=== PATIENT | female | born 1975 | race Caucasian/White ===

== ENCOUNTER 2016-05-20 15:03 | Emergency (ER) | payer OTHER ==
[~2016-05-20 15:03] MED LIST: BACLOFEN10 M1 PO; BENTYL20 MG PO; COMPAZINE10 M1 PO; COMPAZINE25 M1 PR; CYCLOBENZAPRINE5 M2 PO; DILAUDID2 MG PO; LEVSIN-SL0.125 MG SL; PERCOCET 5-3251 EACH PO; PHENERGAN12.5 MG PR; PHENERGAN25 M1 PO; PHENERGAN25 MG PO; PHENERGAN25 MG PR; ULTRAM50 M1 PO; VICODIN5-300 PO; ZOFRAN ODT4 M1 SL; ZOFRAN4 M1 SL
--- NOTE | 2016-05-20 16:12 | ED HEAD/FACIAL INJ COMPLAINT ---
History of Present Illness General Chief Complaint: Facial or Head Injury Stated Complaint: HEAD INJURY 4 DAYS AGO SEEN [facility] NO BETTER Source: patient Exam Limitations: no limitations Vital Signs & Intake/Output Vital Signs & Intake/Output Vital Signs Date Time Temp Pulse Resp B/P Pulse O2 O2 Flow FiO2 Ox Delivery Rate 05/20 1632 98.0 84 16 106/58 95 Room Air 05/20 1518 97.7 135 18 164/104 97 Room Air Allergies Coded Allergies: ondansetron (From ZOFRAN ( HYDROCHLORIDE)) (Mild, migrane 01/07/16) codeine (Mild, NAUSEA 08/11/15) erythromycin base (Mild, NAUSEA 08/11/15) Uncoded Allergies: UNKNOWN ANESTHSIA (Severe, SEVERE VOMITING 08/05/15) Reconcile Medications No Known Home Medications Triage Note: TRIAGE; PT TO ED C/O COUCH CURRENTLY. STATES STARTED LAST PM. STATES THAT SHE HIT HER HEAD IN HER SHED X4 DAYS AGO. ALSO C/O ABDOMINAL DISCOMFORT. HAS HX OF CYCLIC VOMITING SYNDROME. +VOMITING IN TRIAGE. Triage Nurses Notes Reviewed? yes Onset: Abrupt Severity: severe Method of Injury: direct blow Loss of Consciousness: no loss of consciousness : No Patient currently breastfeeds: No HPI: 40-year-old female comes into emergency room for further evaluation after a shelf fell on her head at home. No loss of consciousness. Patient was seen at [facility] initially. Patient reports that they did not do any CAT scans due to the fact that she has had many CAT scans. Patient reports that she 's had more than 10 CAT scans order past couple years. She reports a persistent severe headache. Vomiting. Blurry vision. Denies any fever chills. Patient reports that she has chronic abdominal pain from cyclic vomiting syndrome. She also reports that since she's been here she just has a rash that popped up onto her right hand from rather brace it was placed. Patient reports that she is in significant pain with her head. Patient is emotional in the room. Past History Travel History Traveled to [place] past 21 day No Medical History Any Pertinent Medical History? see below for history Neurological: NONE EENT: NONE Cardiovascular: NONE Respiratory: NONE Gastrointestinal: pancreatitis, CYCLIC VOMITING SYNDROME INGUINAL HERNIA Hepatic: NONE Renal: NONE Musculoskeletal: NONE Psychiatric: anxiety, PANIC ATTACKS Endocrine: NONE Blood Disorders: NONE Cancer(s): NONE DIGITAL SALES REPRESENTATIVE/Reproductive: NONE Tetanus Vaccine: 05/20/16 Surgical History Surgical History: non-contributory Psychosocial History What is your primary language Slovak Tobacco Use: Never used Family History Hx Contributory? No Review of Systems Review of Systems Constitutional: Reports: no symptoms. EENTM: Reports: no symptoms. Respiratory: Reports: no symptoms. Cardiovascular: Reports: no symptoms. GI: Reports: see HPI. Genitourinary: Reports: no symptoms. Musculoskeletal: Reports: see HPI. Skin: Reports: no symptoms. Neurological/Psychological: Reports: see HPI. Hematologic/Endocrine: Reports: no symptoms. Immunologic/Allergic: Reports: no symptoms. All Other Systems: Reviewed and Negative Physical Exam Physical Exam General Appearance: well developed/nourished, anxious, mild distress, emotional Eyes: Bilateral: normal appearance, PERRL, EOMI. Ears, Nose, Throat: normal pharynx, normal ENT inspection, hearing grossly normal Neck: normal inspection, full range of motion Respiratory: normal breath sounds, no respiratory distress Cardiovascular: regular rate/rhythm, tachycardia Back: normal inspection Extremities: normal inspection, normal range of motion, no edema Psychiatric: awake, alert, oriented x 3 Cranial Nerves: normal hearing, normal speech, PERRL Coordination/Gait: normal gait Motor/Sensory: no motor/sensory deficits Skin: intact, normal color, warm/dry Lymphatic: no anterior cervical graciela Progress Differential Diagnosis: corneal abrasion, c-spine injury, facial fracture, globe injury, ICH, orbit fracture, skull fracture, concussion Plan of Care: Orders Procedure Date/time Status CT HEAD WO IV CONTRAST 05/20 1541 Active Diagnostic Imaging: Viewed by Me: CT Scan. Discussed w/RAD: CT Scan. Radiology Impression: SERVICE DATE: 05/20/16 EXAM TYPE: CAT - CT HEAD WO IV CONTRAST EXAMINATION: CT HEAD WITHOUT CONTRAST CLINICAL INFORMATION: Head injury 3 days ago. Headache and vomiting. COMPARISON: Previous head CT August 2015 TECHNIQUE: Contiguous axial imaging was performed from the skull base to vertex without intravenous administration of contrast. DLP: 601 mGy-cm FINDINGS: There is no evidence of an extra-axial collection. There is no evidence of intra or extra-axial hemorrhage. The ventricles and extra-axial CSF spaces are appropriate. Matthews-white matter differentiation is normal. No mass, mass effect or infarct is seen. Review at bone windows is unremarkable. Visualized mastoid air cells, middle ears and paranasal sinuses are clear. IMPRESSION: Unremarkable exam. DICTATED BY: KAILYN ROMANO,SIVAN Mobley. DATE/TIME DICTATED:05/20/16 1605 Comments: 05/20/2016 4:51:40 PM Patient clinically looks well. Patient is sleeping in the room upon reevaluation and is in no apparent distress. Patient can follow-up with primary care doctor. Return to the emergency room immediately if any other concerns worsening symptoms. Patient has no neurological deficits. Understands and agrees with plan of care. Departure Departure Disposition: HOME OR SELF CARE Condition: Stable Clinical Impression Primary Impression: Concussion Referrals: [facility]ILD,SHANNA Santos (PCP/Family) Additional Instructions: Follow-up with [facility] at [phone]. Take ibuprofen as needed at home. Rest. Decreased visual stimuli. Return if any other concerns worsening symptoms. Please go over all results of today's visit with your primary care doctor. Contact your primary care doctor to let them know you were here in the emergency room. There may be nonspecific findings which may not be related to your visit today here in the emergency room but may require further evaluation and chronic monitoring by your primary care doctor. If you had a laceration today the chance of foreign body always remains. You should follow-up with your primary care doctor for recheck in 3-5 days for a wound check. If you had an x-ray done there is a chance that a fracture could have been missed on initial read and you should follow-up with your primary care doctor for repeat x-rays if symptoms persist. If your blood pressure was elevated here in the emergency room please have rechecked by her primary care doctor within the next 48 hours by your primary care doctor. If you were prescribed a narcotic here in the emergency room or any type of controlled substances you're not allowed to drive while taking this medication or operate any type of heavy machinery. Narcotics can make you feel lightheaded dizziness nausea and can cause constipation. You may need to cotton picker operator a stool softener. Thank you for choosing [facility] emergency room. Please return to the emergency room immediately if you have any other concerns worsening of symptoms. Departure Forms: Customer Survey General Discharge Information Prescriptions: Current Visit Scripts No Known Home Medications
--- NOTE | 2016-05-20 16:15 | CT SCAN REPORT ---
EXAMINATION: CT HEAD WITHOUT CONTRAST CLINICAL INFORMATION: Head injury 3 days ago. Headache and vomiting. COMPARISON: Previous head CT August 2015 TECHNIQUE: Contiguous axial imaging was performed from the skull base to vertex without intravenous administration of contrast. DLP: 601 mGy-cm FINDINGS: There is no evidence of an extra-axial collection. There is no evidence of intra or extra-axial hemorrhage. The ventricles and extra-axial CSF spaces are appropriate. Matthews-white matter differentiation is normal. No mass, mass effect or infarct is seen. Review at bone windows is unremarkable. Visualized mastoid air cells, middle ears and paranasal sinuses are clear. IMPRESSION: Unremarkable exam.
[2016-05-20 16:32] VITALS: BP 106/58
== END 2016-05-20 16:40 ==
LOC: ERH 15:03
DX: S06.0X9A Concussion with loss of consciousness of unspecified duration, initial encounter (principal); W20.8XXA Other cause of strike by thrown, projected or falling object, initial encounter; Y92.9 Unspecified place or not applicable; Y93.9 Activity, unspecified
CPT/HCPCS: 90471; 90714